=== PATIENT | male | born 1975 | race Two or more races ===

== ENCOUNTER 2022-03-08 23:42 | Emergency (ER) | payer MEDICARE, MEDICAID ==
[~2022-03-08] VITALS: Ht 160 cm; Wt 70.3 kg
[2022-03-09 03:34] VITALS: BP 135/87
== END 2022-03-09 03:56 | disposition home or self-care (01) ==
LOC: ER 23:42
DX: R00.0 Tachycardia, unspecified (principal)
CPT/HCPCS: 93005

== ENCOUNTER 2023-01-23 20:02 | Emergency (ER) | payer MEDICARE, MEDICAID ==
[~2023-01-23] VITALS: Ht 160 cm; Wt 70.7 kg
[2023-01-23 21:13] LABS: Hematocrit 47.9 % (41.0-53.0); Hemoglobin 15.9 g/dL (13.5-17.5); Mean Corpuscular Hemoglobin 30.1 pg (28.0-32.0); Mean Corpuscular Hgb Conc. 33.1 g/dL (32.0-36.0); Mean Corpuscular Volume 90.9 fL (80.0-100.0); Red Blood Cells 5.27 10^6/uL (4.5-5.90); Red Cell Distribution Width 14.5 % (11.8-14.3); White Blood Cell 14.8 10^3/uL (4.4-10.8)
[2023-01-23 21:22] LABS: Basophils % (manual) 0 (0.0-2.0); Blast Cells 0; Eosinophils % (manual) 0 (0-7); Metamyelocytes % 0; Myelocytes % 0; Promyelocytes % 0; Reactive Lymphocytes 0
[2023-01-23 21:33] LABS: Albumin 4.4 g/dL (3.4-5.0); Calcium 9.3 mg/dL (8.5-10.1); Magnesium 2.2 mg/dL (1.6-2.6); Potassium 4.2 mmol/L (3.5-5.1)
[2023-01-23 21:36] LABS: BUN/Creatinine Ratio 15.4 (10.0-20.0); Bilirubin, Total 0.4 mg/dL (0.2-1.0); Total Protein 8.1 g/dL (6.4-8.2)
[2023-01-23 22:01] LABS: Band Neutrophils % (manual) 3; Lymphocytes % (manual) 8 (10.0-50.0); Monocytes % (manual) 4 (0-12)
[2023-01-23 23:40] VITALS: BP 144/94
[2023-01-23 23:55] LABS: INR 0.95 (0.9-1.15); Partial Thromboplastin Time 27.4 sec (24.6-33.4)
== END 2023-01-23 23:47 | disposition home or self-care (01) ==
LOC: ER 20:04
DX: R00.0 Tachycardia, unspecified (principal); R00.2 Palpitations; R51.9 Headache, unspecified; E78.5 Hyperlipidemia, unspecified; Z79.01 Long term (current) use of anticoagulants; Z79.899 Other long term (current) drug therapy
CPT/HCPCS: 36415; 71045; 80053; 83735; 83880; 84443; 84484; 85007; 85027; 85610; 85730; 93005